=== PATIENT | female | born 1970 | race Two or more races ===

== ENCOUNTER 2017-02-24 05:44 | Emergency (ER) | payer SELFPAY ==
[~2017-02-24] VITALS: Ht 154.9 cm; Wt 66.2 kg
[~2017-02-24 05:44] MED LIST: DOXY100C14 PO; FERR325T72 PO; HYDR-971 PO; METH0.2T36 PO; OXYC-323 PO
[2017-02-24 06:05] VITALS: BP 164/85
[2017-02-24] MEDS ORDERED: NAPR500T PO (06:16)
[2017-02-24] MEDS ORDERED: HYDR-2758 PO (06:16)
--- NOTE | 2017-02-24 06:20 | PHYS DOC ---
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 She describes the pain is dull and achy worse with repetitive motions and gripping items. 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 She notes that the pain is worse at night described as a throbbing ache is radiating from hand with some tingling and numbness along the first through fourth fingers. It is worse with provocative ranges of motion and direct pressure over the elbow itself. Patient denies any trauma, night sweats, fevers, chest pain, shortness of breath, neck pain or other specific numbness other than the hand. sHe also has pain from the elbow along the ulnar nerve disposition of the forearm. Review of Systems Review of Systems Constitutional: Denies fever or chills [] Eyes: Denies change in visual acuity, redness, or eye pain [] HENT: Denies nasal congestion or sore throat [] Respiratory: Denies cough or shortness of breath [] Cardiovascular: No additional information not addressed in HPI [] GI: Denies abdominal pain, nausea, vomiting, bloody stools or diarrhea [] : Denies dysuria or hematuria [] Musculoskeletal: Only complaint is of her upper left extremity from the elbow to the hand. Integument: Denies rash or skin lesions [] Neurologic: Denies headache, focal weakness he describes some tingling and numbness to the hand over the median nerve distribution. [] Endocrine: Denies polyuria or polydipsia [] Allergies Allergies Allergies Coded Allergies Type Severity Reaction Last Updated Verified No Known Drug Allergies 03/30/16 No Physical Exam Physical Exam Constitutional: Well developed, well nourished, no acute distress, non-toxic appearance. [] HENT: Normocephalic, atraumatic, bilateral external ears normal, oropharynx moist, no oral exudates, nose normal. [] Eyes: PERRLA, EOMI, conjunctiva normal, no discharge. [] Neck: Normal range of motion, no tenderness, supple, no stridor. [] Cardiovascular:Heart rate regular rhythm, no murmur [] Lungs & Thorax: Bilateral breath sounds clear to auscultation [] Skin: Warm, dry, no erythema, no rash. [] Back: No tenderness, no CVA tenderness. [] Extremities: Patient has tenderness along the ulnar nerve groove on the left. She has paresthesias and tenderness that is increased with a petition along that particular nerve. It radiates along the flexor carpi radialis muscle is also has tender to palpation along the carpal tunnel with increased pain with phalens and tinels signs. Neurologic: Alert and oriented X 3, normal motor function, normal sensory function, no focal deficits noted. [] Psychologic: Affect normal, judgement normal, mood normal. [] EKG EKG [] Radiology/Procedures Radiology/Procedures [] Course & Med Decision Making Course & Med Decision Making Pertinent Labs and Imaging studies reviewed. (See chart for details) [] Dragon Disclaimer Dragon Disclaimer This electronic medical record was generated, in whole or in part, using a voice recognition dictation system. 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 Please use the anti- inflammatories and a cockup wrist splint and the protection of the elbow to help improve your symptoms before seeing the orthopedic surgeon. Please return for any question or concern she might have. Scripts Naproxen (NAPROSYN) 500 Mg Tablet 1 TAB PO BID, #14 TAB 1 Refill Prov: DARRELL REARDON MD 02/24/17 Hydrocodone Bit/Acetaminophen (HYDROCODONE-APAP 5-325 ) 1 Each Tablet 1-2 TAB PO PRN Q6HRS Y for PAIN for 5 Days, #10 TAB 0 Refills Prov: DARRELL REARDON MD 02/24/17 Problem Qualifiers DARRELL REARDON MD Feb 24, 2017 06:20
[2017-02-24] MEDS ORDERED: KETOROLAC TROMETHAMINE 60 MG/2 ML INJ. IM ONE (06:45)
== END 2017-02-24 06:52 | disposition home or self-care (01) ==
LOC: ER 05:44
DX: G56.02 Carpal tunnel syndrome, left upper limb (principal); G56.22 Lesion of ulnar nerve, left upper limb
CPT/HCPCS: 96372; 99283; J1885

== ENCOUNTER 2021-05-12 14:09 | Emergency (ER) | payer SELFPAY ==
[~2021-05-12] VITALS: Ht 154.9 cm; Wt 58.8 kg
[~2021-05-12 14:09] MED LIST changes: +DOXY-181 PO; -DOXY100C14 PO; +HYDR-2761 PO; +HYDR-3164 PO; -HYDR-971 PO; +NAPR-683 PO; -OXYC-323 PO; +OXYC1TAB15 PO
[2021-05-12 15:20] LABS: BILIRUBIN,URINE NEGATIVE (NEG); CLARITY,URINE CLEAR; COLOR,URINE YELLOW; NITRITE,URINE NEGATIVE (NEG); PROTEIN,URINE NEGATIVE (NEG-TRACE); UROBILINOGEN,URINE 0.2 mg/dL (0.2 mg/dL)
--- NOTE | 2021-05-12 15:21 | PHYS DOC ---
Past Medical History Past Medical History: No Pertinent History Past Surgical History: No Surgical History, Other Additional Past Surgical Histo: D & C Smoking Status: Never Smoker Alcohol Use: None Drug Use: None General Adult EDM: Chief Complaint: ABNORMAL LABS HPI: HPI: Patient is a 50-year-old female with a history of anemia presents to the emergency department complaining of abnormal labs that were drawn at a outside urgent care earlier today. She reports that 2 days ago she had a CBC drawn that showed a hemoglobin of 7.1 and then today she had a hemoglobin drawn that was 5.8. She does note that she has been on her menstrual cycle for the last 3 to 4 days, denies history of abnormally heavy flows. She further denies any blood in the stool, vomiting blood, vaginal bleeding today, or other episodes of bleeding. She does admit that she feels tired and lightheaded at this time. She has been transfused blood before. The patient denies nausea, vomiting, fever, chills, chest pain, shortness of breath, abdominal pain, urinary symptoms, cough, recent trauma, or any other complaints. Review of Systems: Review of Systems: ROS otherwise negative except for what was mentioned in HPI Heart Score: C/O Chest Pain: No Allergies: Allergies: Allergies Coded Allergies Type Severity Reaction Last Updated Verified No Known Drug Allergies 03/30/16 No Physical Exam: PE: Constitutional: No acute distress, non-toxic appearance. HENT: Atraumatic, bilateral external ears normal, nose normal. Eyes: PERRLA, EOMI, conjunctiva normal, no discharge. Neck: Normal range of motion, supple, no stridor. Cardiovascular: Heart rate regular rhythm. 2+ radial pulses Lungs & Thorax: No respiratory distress, symmetrical expansion. Abdomen: Soft, no tenderness Skin: Warm, dry. Pale appearing Extremities: No tenderness, no cyanosis, ROM intact, no edema. Neurologic: Alert and oriented X 3, normal motor function, normal sensory function, no focal deficits noted. Non ataxic gait. GCS 15. Psychologic: Affect normal, judgment normal, mood normal. Current Patient Data: Labs: Laboratory Tests Test 05/12/21 15:05 05/12/21 15:14 05/12/21 15:45 Urine Collection Type Void Urine Color Yellow Urine Clarity Clear Urine pH 6.0 (<5.0-8.0) Urine Specific [place] 1.010 (1.000-1.030) Urine Protein Negative mg/dL (NEG-TRACE) Urine Glucose (UA) Negative mg/dL (NEG) Urine Ketones (Stick) Negative mg/dL (NEG) Urine Blood Negative (NEG) Urine Nitrite Negative (NEG) Urine Bilirubin Negative (NEG) Urine Urobilinogen Dipstick 0.2 mg/dL (0.2 mg/dL) Urine Leukocyte Esterase Negative (NEG) Urine RBC Occ /HPF (0-2) Urine WBC 1-4 /HPF (0-4) Urine Squamous Epithelial Cells Many /LPF Urine Bacteria Few /HPF (0-FEW) Bedside Urine HCG, Qualitative Hcg negative (Negative) White Blood Count 6.1 x10^3/uL (4.0-11.0) Red Blood Count 3.18 x10^6/uL (3.50-5.40) Hemoglobin 7.3 g/dL (12.0-15.5) Hematocrit 22.9 % (36.0-47.0) Mean Corpuscular Volume 72 fL (79-100) Mean Corpuscular Hemoglobin 23 pg (25-35) Mean Corpuscular Hemoglobin Concent 32 g/dL (31-37) Red Cell Distribution Width 16.2 % (11.5-14.5) Platelet Count 558 x10^3/uL (140-400) Neutrophils (%) (Auto) 45 % (31-73) Lymphocytes (%) (Auto) 44 % (24-48) Monocytes (%) (Auto) 8 % (0-9) Eosinophils (%) (Auto) 3 % (0-3) Basophils (%) (Auto) 1 % (0-3) Neutrophils # (Auto) 2.7 x10^3/uL (1.8-7.7) Lymphocytes # (Auto) 2.7 x10^3/uL (1.0-4.8) Monocytes # (Auto) 0.5 x10^3/uL (0.0-1.1) Eosinophils # (Auto) 0.2 x10^3/uL (0.0-0.7) Basophils # (Auto) 0.1 x10^3/uL (0.0-0.2) Sodium Level 136 mmol/L (136-145) Potassium Level 3.9 mmol/L (3.5-5.1) Chloride Level 103 mmol/L (98-107) Carbon Dioxide Level 26 mmol/L (21-32) Anion Gap 7 (6-14) Blood Urea Nitrogen 16 mg/dL (7-20) Creatinine 0.6 mg/dL (0.6-1.0) Estimated GFR (Cockcroft-Gault) 106.3 Glucose Level 90 mg/dL (70-99) Calcium Level 8.8 mg/dL (8.5-10.1) Vital Signs: Vital Signs Date Time Temp Pulse Resp B/P (MAP) Pulse Ox O2 Delivery O2 Flow Rate FiO2 05/12/21 15:03 98.3 87 16 162/70 (100) 100 Room Air 98.3 Course & Med Decision Making: Course & Med Decision Making Her labs here show a hemoglobin of 7.3, no transfusions indicated at this time, history and physical does not reveal a source of bleeding at this time. Patient will be discharged home with instructions to follow-up with her primary care provider for further treatment of her anemia along with return to the emergency department if she has any further episodes of bleeding or symptoms of anemia including lightheadedness, dizziness or syncope. Departure Departure Impression: Primary Impression: Anemia Disposition: 01 HOME / SELF CARE / HOMELESS Condition: STABLE Referrals: JANES WATERMAN-BRANDEE (PCP) Patient Instructions: Anemia, Nonspecific-Brief Additional Instructions: You were seen in the emergency department and your health condition was deemed not to require admission to the hospital. It is important to realize that we can only evaluate you during the time that you are in her department. Occasionally health conditions can worsen upon leaving the emergency department. If this were to happen, please return to and allow us the opportunity to reevaluate you. It is a pleasure to take care of your health needs. Return to the ER if your symptoms worsen, do not improve, or if you develop additional symptoms that are concerning to you MUNA ROTHMAN DO May 12, 2021 15:21
[2021-05-12 15:26] LABS: BACTERIA,URINE FEW /HPF (0-FEW); RBC,URINE OCC /HPF (0-2)
[2021-05-12 16:01] LABS: BASO # 0.1 x10^3/uL (0.0-0.2); BASO % 1 % (0-3); EOS # 0.2 x10^3/uL (0.0-0.7); EOS % 3 % (0-3); HEMATOCRIT 22.9 % (36.0-47.0); HEMOGLOBIN 7.3 g/dL (12.0-15.5); LYMPH # 2.7 x10^3/uL (1.0-4.8); LYMPH % 44 % (24-48); MEAN CORPUSCULAR HEMOGLOBIN 23 pg (25-35); MEAN CORPUSCULAR HGB CONC 32 g/dL (31-37); MEAN CORPUSCULAR VOLUME 72 fL (79-100); MONO # 0.5 x10^3/uL (0.0-1.1); MONO % 8 % (0-9); NEUT # 2.7 x10^3/uL (1.8-7.7); NEUT % 45 % (31-73); PLATELET COUNT 558 x10^3/uL (140-400); RED BLOOD COUNT 3.18 x10^6/uL (3.50-5.40); RED CELL DISTRIBUTION WIDTH 16.2 % (11.5-14.5); WHITE BLOOD COUNT 6.1 x10^3/uL (4.0-11.0)
[2021-05-12 16:10] LABS: CALCIUM 8.8 mg/dL (8.5-10.1); CREATININE 0.6 mg/dL (0.6-1.0); GFR 106.3; POTASSIUM 3.9 mmol/L (3.5-5.1)
[2021-05-12 16:59] LABS: HYPOCHROMIA MOD; MICROCYTOSIS SLIGHT; PLT ESTIMATE INCREASED (ADEQUATE); POLYCHROMASIA PRESENT
[2021-05-12 17:16] VITALS: BP 118/73
== END 2021-05-12 17:42 | disposition home or self-care (01) ==
LOC: ER 14:09
DX: D64.9 Anemia, unspecified (principal)
CPT/HCPCS: 36415; 80048; 81001; 81025; 85025; 86850; 86900; 86901; 99283; 99285